=== PATIENT | female | born 1990 | race Caucasian/White ===

== ENCOUNTER 2018-05-05 23:28 | Emergency (ER) | payer BC ==
[~2018-05-05] VITALS: Ht 157.5 cm; Wt 61.2 kg
[2018-05-06 00:01] LABS: ABSOLUTE LYMPHOCYTES 2.4 thou/uL (0.8-5.3); ABSOLUTE MONOCYTES 0.4 thou/uL (0.0-1.2); ABSOLUTE NEUTROPHILS 4.5 thou/uL (1.6-8.1); BASOPHILS 0.3 %; EOSINOPHILS 0.4 %; HEMATOCRIT 43.9 % (37.0-47.0); HEMOGLOBIN 14.8 gm/dL (12.0-15.0); LYMPHOCYTES 32.4 %; MCH 29.9 pg (26.0-34.0); MCHC 33.6 g/dL (28.0-37.0); MCV 88.8 fL (80.0-100.0); MONOCYTES 5.6 %; MPV 9.4 fl. (7.2-11.1); NUCLEATED RBCS 0 /100WBC; PLATELET COUNT* 244 thou/uL (150-400); POLYS 61.3 %; RBC 4.94 mil/uL (4.20-5.00); RDW-CV 12.9 % (10.5-14.5); WBC 7.3 thou/uL (4.0-11.0)
[2018-05-06 00:11] LABS: ANION GAP 6 mmol/L (7-16); BUN 13 mg/dL (7-18); CALCIUM 8.8 mg/dL (8.5-10.1); CHLORIDE 104 mmol/L (98-107); CO2 28 mmol/L (21-32); CREATININE 0.7 mg/dL (0.6-1.3); GLUCOSE 138 mg/dL (70-99); SODIUM 138 mmol/L (136-145)
[2018-05-06 00:18] LABS: ALBUMIN 3.8 g/dL (3.4-5.0); ALKALINE PHOSPHATASE 56 U/L (46-116); SGOT 16 U/L (15-37); SGPT 34 U/L (30-65); TOTAL BILIRUBIN 0.3 mg/dL (<0.1-1.0); TROPONIN-I LEVEL <0.06 ng/mL (<0.06)
[2018-05-06] MEDS ORDERED: ADDERALL 30 MG30 MG PO (00:29)
[2018-05-06] MEDS ORDERED: ALPRAZOLAM 0.50.5 M1 PO (00:30)
[2018-05-06 00:46] VITALS: BP 148/93
--- NOTE | 2018-05-06 11:01 | EKG ---
[place] [address] ELECTROCARDIOGRAM REPORT Name: JONO PHILIPPE Room: [facility]#: [id number] Admission: 05/05/18 Attend Phys: Discharge: 05/06/18 Date of : 89 Report #: [id number] THIS REPORT FOR: //name// [facility] ED Test Date: 2018-05-06 Test Time: 00:06:08 Pat Name: JONO PHILIPPE Department: Room: Gender: F Hand I Blocker: HEIDY : 1990 Requested By: Mazin Gooden Order Number: [id number] MD: Carmine Watkins Measurements Intervals [place] Rate: 104 P: 50 CT: 117 QRS: 91 QRSD: 93 T: 32 QT: 329 QTc: 433 Interpretive Statements Sinus tachycardia Borderline right axis deviation No previous ECG available for comparison Electronically Signed On 05-06-2018 11:01:35 CDT by Carmine Watkins [email or web address] <ELECTRONICALLY SIGNED> By: Carmine Watkins MD, [facility] 05/06/18 1101 0006 0006 Carmine Watkins MD, FACC /EPI
== END 2018-05-06 00:47 | disposition home or self-care (01) ==
LOC: M.ERS 23:28
PROVIDERS: Emergency Medicine Emergency Medical Services
DX: R00.2 Palpitations (principal); R42 Dizziness and giddiness; R20.2 Paresthesia of skin